=== PATIENT | male | born 1995 | race Hispanic/Latino ===

== ENCOUNTER 2020-12-17 22:13 | Inpatient (IN) | payer SELFPAY ==
[2020-12-17 22:37] LABS: Absolute Lymphocytes (CBC) 1.7 K/uL (0.7-4.9); Basophils % 0.3 % (0-1.3); Hematocrit 44.9 % (39.6-49.0); Lymphocytes % 8.8 % (15.3-44.8); MPV 8.3 fL (7.6-11.3); RBC Red Blood Cell Count 5.06 M/uL (4.33-5.43)
[2020-12-17 22:50] LABS: Albumin 5.5 g/dL (3.4-5.0); Bilirubin Direct 0.2 mg/dL (0-0.2); Bilirubin Total 0.7 mg/dL (0.2-1.0); Magnesium 2.2 mg/dL (1.8-2.4); Potassium 3.6 mmol/L (3.5-5.1); Protein, Total 9.9 g/dL (6.4-8.2)
[2020-12-17] MEDS ORDERED: Ringers Lactate 1,000 ML IV ONE (22:59)
[2020-12-17 23:20] LABS: Blood Morphology Comment NOT SEEN (NOT SEEN); Platelet Estimate ADEQ
--- NOTE | 2020-12-17 23:37 | EDPHYS ---
Physician Documentation [facility] Name: Junior South Gonzales Age: 25 yrs Sex: Male : 1995 Arrival Date: 12/17/2020 Time: 22:14 Bed 7 Private MD: ED Physician El Arevalo HPI: 12/17 23:07 This 25 yrs old Male presents to ER via Stretcher with complaints of Heat Exposure. jr8 23:31 Patient stated that he has been joshua all day. Last urination was this morning. This jr8 evening started to cramp severely . Severity of symptoms: At their worst the symptoms were moderate in the emergency department the symptoms are unchanged. The patient has not experienced similar symptoms in the past. The patient has not recently seen a physician. Historical: - Allergies: 22:26 No Known Allergies; em - PMHx: 22:26 None; em - PSHx: 22:26 left femur; em - Immunization history:: Adult Immunizations up to date. - Social history:: Smoking status: Patient denies any tobacco usage or history of. ROS: 23:31 Eyes: Negative for injury, pain, redness, and discharge, ENT: Negative for injury, jr8 pain, and discharge, Neck: Negative for injury, pain, and swelling, Cardiovascular: Negative for chest pain, palpitations, and edema, Respiratory: Negative for shortness of breath, cough, wheezing, and pleuritic chest pain, Abdomen/GI: Negative for abdominal pain, nausea, vomiting, diarrhea, and constipation, Back: Negative for injury and pain, MS/Extremity: Negative for injury and deformity, Skin: Negative for injury, rash, and discoloration, Neuro: Negative for headache, weakness, numbness, tingling, and seizure. Exam: 23:31 Constitutional: This is a well developed, well nourished patient who is awake, alert, jr8 and in no acute distress. Eyes: Pupils equal round and reactive to light, extra-ocular motions intact. Lids and lashes normal. Conjunctiva and sclera are non-icteric and not injected. Cornea within normal limits. Periorbital areas with no swelling, redness, or edema. ENT: Nares patent. No nasal discharge, no septal abnormalities noted. Tympanic membranes are normal and external auditory canals are clear. Oropharynx with no redness, swelling, or masses, exudates, or evidence of obstruction, uvula midline. Mucous membranes moist. Neck: Trachea midline, no thyromegaly or masses palpated, and no cervical lymphadenopathy. Supple, full range of motion without nuchal rigidity, or vertebral point tenderness. No Meningismus. Cardiovascular: Regular rate and rhythm with a normal S1 and S2. No gallops, murmurs, or rubs. Normal PMI, no JVD. No pulse deficits. Respiratory: Lungs have equal breath sounds bilaterally, clear to auscultation and percussion. No rales, rhonchi or wheezes noted. No increased work of breathing, no retractions or nasal flaring. Abdomen/GI: Soft, non-tender, with normal bowel sounds. No distension or tympany. No guarding or rebound. No evidence of tenderness throughout. Back: No spinal tenderness. No costovertebral tenderness. Full range of motion. Skin: Warm, dry with normal turgor. Normal color with no rashes, no lesions, and no evidence of cellulitis. MS/ Extremity: Pulses equal, no cyanosis. Neurovascular intact. Full, normal range of motion. Neuro: Awake and alert, GCS 15, oriented to person, place, time, and situation. Cranial nerves II-XII grossly intact. Motor strength 5/5 in all extremities. Sensory grossly intact. Vital Signs: 22:22 BP 124 / 76; Pulse 103; Resp 18; Temp 98.6; Pulse Ox 98% on R/A; Weight 68.04 kg; em Height 5 ft. 8 in. (172.72 cm); Pain 0/10; 23:09 BP 111 / 65; Pulse 85; Resp 18; Pulse Ox 98% ; ea 12/18 00:20 BP 125 / 83; Pulse 80; Resp 18; Pulse Ox 99% on R/A; ea 12/17 22:22 Body Mass Index 22.81 (68.04 kg, 172.72 cm) em [facility]: 12/17 22:15 Patient medically screened. [facility] 23:31 Data reviewed: vital signs, nurses notes, lab test result(s), and as a result, I will [facility] admit patient. Data interpreted: Pulse oximetry: on room air is 98 %. Interpretation: normal. Counseling: I had a detailed discussion with the patient and/or guardian regarding: the historical points, exam findings, and any diagnostic results supporting the discharge/admit diagnosis, lab results, the need for further work-up and treatment in the hospital. 12/17 22:15 Order name: CBC with Diff; Complete Time: 23:30 8 12/17 22:15 Order name: Basic Metabolic Panel; Complete Time: 23:12 jr8 12/17 22:15 Order name: LFT's; Complete Time: 23:12 8 12/17 22:15 Order name: CK; Complete Time: 23:12 8 12/17 22:15 Order name: Magnesium; Complete Time: 23:12 jr8 12/17 23:00 Order name: Manual Differential; Complete Time: 23:30 EDMS 12/18 00:28 Order name: Urine Dipstick-Ancillary; Complete Time: 00:29 EDMS 12/18 01:48 Order name: SARS-COV-2 RT PCR; Complete Time: 13:33 EDMS 12/18 03:36 Order name: Lactate; Complete Time: 13:33 EDMS 12/18 03:45 Order name: Protime (+INR); Complete Time: 13:33 EDMS 12/18 03:45 Order name: PTT, Activated Partial Thromb; Complete Time: 13:33 EDMS 12/18 03:53 Order name: CBC with Automated Diff; Complete Time: 13:33 EDMS 12/18 04:30 Order name: Comprehensive Metabolic Panel; Complete Time: 13:33 EDMS 12/17 22:15 Order name: IV; Complete Time: 22:24 jr8 12/17 22:16 Order name: Urine Dipstick-Ancillary (obtain specimen); Complete Time: 00:28 8 12/18 04:30 Order name: Creatine Phosphokinase; Complete Time: 13:33 EDMS 12/18 04:30 Order name: T4 Free; Complete Time: 13:33 EDMS 12/18 04:30 Order name: Thyroid Stimulating Hormone; Complete Time: 13:33 EDMS Administered Medications: 23:00 Drug: Ringers - Lactated Ringers Solution 1000 ml Route: IV; Rate: bolus; Site: right ea antecubital; 23:44 Follow up: IV Status: Completed infusion; IV Intake: 1000ml em 23:26 Drug: NS 0.9% 1000 ml Route: IV; Rate: 1000 ml; Site: right antecubital; ea 07/01 00:28 Follow up: Response: No adverse reaction; IV Status: Completed infusion; IV Intake: ea 1000ml 12/17 23:57 Drug: NS 0.9% 1000 ml Route: IV; Rate: 125 ml/hr; Site: right antecubital; ea 12/18 00:28 Follow up: Response: No adverse reaction; IV Status: Infusion continued upon admission ea Disposition Summary: 12/17/20 23:36 Hospitalization Ordered Hospitalization Status: Inpatient Admission jr8 Provider: Ethan George Condition: Stable jr8 Problem: new jr8 Symptoms: are unchanged jr8 Bed/Room Type: Standard 8 Location: Telemetry/MedSurg (Inpatient)(12/18/20 04:46) tl1 Room Assignment: [facility](12/18/20 04:46) tl1 Diagnosis - Acute kidney failure, unspecified jr8 - Dehydration jr8 - Heat exhaustion, unspecified jr8 Forms: - Medication Reconciliation Form jr8 - SBAR form jr8 Addendum: 12/22/2020 20:39 Co-signature as Attending Physician, El chan a2 Signatures: Dispatcher [employer] Chris Kiran RN RN em Roszak, Josh, PA PA jr8 Iris De Guzman RN RN tl1 Yuni Degroot RN RN ea Alzahri, Mohammad, MD MD ma2 Corrections: (The following items were deleted from the chart) 12/18 00:11 00:02 CORONAVIRUS+MR.LAB.BRZ ordered. [facility] EDID 00:50 12/17 23:36 Telemetry/MedSurg (Inpatient) jr8 em 12/18 00:50 12/17 23:36 jr8 em 12/18 04:46 00:50 [facility] ER HOLD em tl1 04:46 00:50 ERHOLD- em tl1
--- NOTE | 2020-12-17 23:37 | ER ---
Nurse's Notes [facility] Name: Junior South Gonzales Age: 25 yrs Sex: Male : 1995 Arrival Date: 12/17/2020 Time: 22:14 Bed 7 Private MD: Diagnosis: Acute kidney failure, unspecified;Dehydration;Heat exhaustion, unspecified Presentation: 12/17 22:22 Chief complaint: Patient states: was working on a roof all day, reports nausea, em cramping, and possible dehydration, pt unable to sit in wheelchair, stretcher wheeled to the lobby. Coronavirus screen: Client denies travel out of the [place] in the last 14 days. Ebola Screen: Patient negative for fever greater than or equal to 101.5 degrees Fahrenheit, and additional compatible Ebola Virus Disease symptoms Patient denies exposure to infectious person. Patient denies travel to an Ebola-affected area in the 21 days before illness onset. No symptoms or risks identified at this time. Initial Sepsis Screen: Does the patient meet any 2 criteria? HR > 90 bpm. No. Patient's initial sepsis screen is negative. Does the patient have a suspected source of infection? No. Patient's initial sepsis screen is negative. Risk Assessment: Do you want to hurt yourself or someone else? Patient reports no desire to harm self or others. Onset of symptoms was December 17, 2020. 22:22 Method Of Arrival: Stretcher em 22:22 Acuity: TIKI 2 em Historical: - Allergies: 22:26 No Known Allergies; em - PMHx: 22:26 None; em - PSHx: 22:26 left femur; em - Immunization history:: Adult Immunizations up to date. - Social history:: Smoking status: Patient denies any tobacco usage or history of. Screenin:30 Abuse screen: Denies threats or abuse. Nutritional screening: No deficits noted. ea Tuberculosis screening: No symptoms or risk factors identified. Fall Risk IV access (20 points). Assessment: 22:30 General: Appears uncomfortable, Behavior is appropriate for age. Pain: Denies pain. ea Neuro: Level of Consciousness is awake, alert, obeys commands, Oriented to person, place, time. Cardiovascular: Patient's skin is warm and dry. Respiratory: Airway is patent Respiratory effort is even, unlabored, Respiratory pattern is regular, symmetrical. Derm: Skin is pink, warm \T\ dry. 12/18 00:28 Reassessment: Patient and/or family updated on plan of care and expected duration. Pain ea level reassessed. Patient is alert, oriented x 3, equal unlabored respirations, skin warm/dry/pink. Pt admitted to ER hold. Vital Signs: 12/17 22:22 BP 124 / 76; Pulse 103; Resp 18; Temp 98.6; Pulse Ox 98% on R/A; Weight 68.04 kg; em Height 5 ft. 8 in. (172.72 cm); Pain 0/10; 23:09 BP 111 / 65; Pulse 85; Resp 18; Pulse Ox 98% ; ea 12/18 00:20 BP 125 / 83; Pulse 80; Resp 18; Pulse Ox 99% on R/A; ea 12/17 22:22 Body Mass Index 22.81 (68.04 kg, 172.72 cm) em ED Course: 12/17 22:14 Patient arrived in ED. mw2 22:15 Cody Villavicencio PA is PHCP. jr8 22:15 El Arevalo MD is Attending Physician. jr8 22:24 Yuni Degroot, CATHY is Primary Nurse. ea 22:24 Inserted saline lock: 20 gauge in right antecubital area, using aseptic technique. ea Blood collected. 22:26 Triage completed. em 22:30 Patient has correct armband on for positive identification. Bed in low position. Call ea light in reach. Side rails up X2. 22:31 Arm band placed on. em 23:35 Ethan George is Hospitalizing Provider. jr8 12/18 00:19 No provider procedures requiring assistance completed. Patient admitted, IV remains in ea place. Administered Medications: 12/17 23:00 Drug: Ringers - Lactated Ringers Solution 1000 ml Route: IV; Rate: bolus; Site: right ea antecubital; 23:44 Follow up: IV Status: Completed infusion; IV Intake: 1000ml em 23:26 Drug: NS 0.9% 1000 ml Route: IV; Rate: 1000 ml; Site: right antecubital; ea 12/18 00:28 Follow up: Response: No adverse reaction; IV Status: Completed infusion; IV Intake: ea 1000ml 12/17 23:57 Drug: NS 0.9% 1000 ml Route: IV; Rate: 125 ml/hr; Site: right antecubital; ea 12/18 00:28 Follow up: Response: No adverse reaction; IV Status: Infusion continued upon admission ea Intake: 12/17 23:44 IV: 1000ml; Total: 1000ml. em 12/18 00:28 IV: 1000ml; Total: 2000ml. ea Outcome: 12/17 23:36 Decision to Hospitalize by Provider. jrShalini 12/18 00:19 Admitted to ER Hold. Please see [facility] for further documentation. ea Condition: stable Instructed on the need for admit, Demonstrated understanding of instructions. 06:07 Patient left the ED. jb4 Signatures: Chris Garcia RN RN Cody Khanna PA PA jr8 René Merino RN RN jb4 Yuni Degroot RN Penelope Jiménez ea mw2
[2020-12-17] MEDS ORDERED: NA CHLORIDE 0.9% 2,000 ML ONE (23:39)
[2020-12-18 00:29] LABS: Urine Blood 1+ (Negative); Urine Glucose Negative (Negative); Urine Protein Negative (Negative); Urine Specific Gravity <=1.005 (1.005-1.030); Urine pH 5.5 (5.0-7.0)
[2020-12-18] MEDS ORDERED: ACETAMINOPHEN 500 MG TAB PO PRN (01:29)
[2020-12-18] MEDS: NA CHLORIDE 0.9% 1,000 ML IV SCH ×3 (01:29→16:57)
[2020-12-18] MEDS ORDERED: ONDANSETRON 4 MG/2 ML VIAL IV PRN (01:29)
--- NOTE | 2020-12-18 01:57 | P.HP ---
Certification for Inpatient Patient admitted to: Inpatient With expected LOS: <2 Midnights <HubertZach Adam - Last Filed: 12/18/20 01:50> Patient History Date of Service: 12/18/20 Reason for admission: dehydration, VELMA History of Present Illness: Mr. South Gonzales is a 25 yo M who presents with severe muscle cramps after working at his [employer] job all day. Symptoms improved after receiving fluids in the ED. Denies headache, N/V, dizziness. WBC 19.5. Na 132, Cl 95. BUN 31, Cr 3.47, GFR 22. Glu 171. CK 551. - Past Medical/Surgical History Has patient received pneumonia vaccine in the past: No Diabetic: No Past Medical History: Patient denies medical history -: left femur - Family History Family History: Reviewed- Non-Contributory - Social History Smoking Status: Never smoker Alcohol use: Yes CD- Drugs: No Caffeine use: Yes Place of Residence: Home <Zach Gaspar - Last Filed: 12/18/20 01:50> Date of Service: 12/18/20 <El Quiñones - Last Filed: 12/22/20 04:40> Allergies No Known Allergies Allergy (Unverified 12/18/20 01:29) Review of Systems 10-point ROS is otherwise unremarkable Musculoskeletal: As per HPI (muscle cramps) <HubertZach - Last Filed: 12/18/20 01:50> Physical Examination - Physical Exam General: Alert, In no apparent distress HEENT: Atraumatic, PERRLA, Mucous membr. moist/pink, EOMI, Sclerae nonicteric Neck: Supple, 2+ carotid pulse no bruit, No LAD, Without JVD or thyroid abnormality Respiratory: Clear to auscultation bilaterally, Normal air movement Cardiovascular: Regular rate/rhythm, Normal S1 S2 Gastrointestinal: Normal bowel sounds, No tenderness Musculoskeletal: No tenderness Integumentary: No rashes Neurological: Normal gait, Normal speech, Normal strength at 5/5 x4 extr, Normal tone, Normal affect Lymphatics: No axilla or inguinal lymphadenopathy - Studies Laboratory Data (last 24 hrs) 12/17/20 22:19: Sodium 132 L, Potassium 3.6, BUN 31 H, Creatinine 3.47 H, Glucose 171 H, Magnesium 2.2, Total Bilirubin 0.7, AST 22, ALT 31, Alkaline Phosphatase 99 12/17/20 22:19: WBC 19.50 H, Hgb 15.1, Hct 44.9, Plt Count 294 <Zach Gaspar - Last Filed: 12/18/20 01:50> Assessment and Plan - Problems (Diagnosis) (1) Dehydration Status: Acute (2) VELMA (acute kidney injury) Status: Acute (3) Heat cramp Status: Acute Qualifiers: Encounter type: initial encounter Qualified Code(s): T67.2XXA - Heat cramp, initial encounter - Plan continue aggressive fluid hydration - oral and IVF will repeat BMP in the AM for improvement of VELMA if no improvement, will consult nephrology DVT ppx Discharge Plan: Home Plan to discharge in: 24 Hours - Advance Directives Does patient have a Living Will: No Does patient have a Durable POA for Healthcare: No - Code Status/Comfort Care Code Status Assessed: Yes (full code ) Critical Care: No Time Spent Managing Pts Care (In Minutes): 70 <Zach Gaspar - Last Filed: 12/18/20 01:50> Date of Service: 12/18/20 Subjective: Agree with plan of care as mentioned above Physical Examination: Vitals: Afebrile vital signs are stable Physical exam: Cardiovascular: Within normal limits. Lungs: Within normal limits Abdomen: Within normal limits Neuro: Awake, alert, oriented to person place and time Assessment: 1. Acute kidney injury Plan: 1. Continue with current plan of care including aggressive IV hydration. 2. Monitor renal function closely <El Quiñones - Last Filed: 12/22/20 04:40>
[2020-12-18 03:42] LABS: Basophils % 0.5 % (0-1.3); Hematocrit 38.9 % (39.6-49.0); MPV 8.3 fL (7.6-11.3); RBC Red Blood Cell Count 4.36 M/uL (4.33-5.43)
[2020-12-18 03:44] VITALS: BMI 22.8
[2020-12-18 03:44] LABS: Protime INR 1.14
[2020-12-18 03:45] LABS: Bilirubin Total 0.5 mg/dL (0.2-1.0); Potassium 3.9 mmol/L (3.5-5.1); Protein, Total 7.4 g/dL (6.4-8.2); Thyroid Stimulating Hormone 0.575 uIU/mL (0.360-3.740)
[2020-12-18] MEDS: ENOXAPARIN 40 MG/0.4 ML SQ SCH (07:46)
[2020-12-18] MEDS ORDERED: POTASSIUM CL SA 10 MEQ TAB PO ONE (09:00)
[2020-12-19 04:23] LABS: Absolute Lymphocytes (CBC) 2.6 K/uL (0.7-4.9); Basophils % 0.6 % (0-1.3); Hematocrit 38.3 % (39.6-49.0); MPV 8.2 fL (7.6-11.3); RBC Red Blood Cell Count 4.21 M/uL (4.33-5.43)
[2020-12-19 04:34] LABS: ALT/SGPT 24 U/L (12-78); AST/SGOT 20 U/L (15-37); Albumin 3.5 g/dL (3.4-5.0); Alkaline Phosphatase 83 U/L (45-117); BUN Blood Urea Nitrogen 14 mg/dL (7-18); Bicarbonate 27 mmol/L (21-32); Bilirubin Total 0.5 mg/dL (0.2-1.0); Glucose Level 104 mg/dL (74-106); Phosphorus 3.4 mg/dL (2.5-4.9); Potassium 4.8 mmol/L (3.5-5.1); Protein, Total 6.6 g/dL (6.4-8.2); Sodium Level 141 mmol/L (136-145)
--- NOTE | 2020-12-19 06:22 | EKG ---
Test Date: 2020-12-17 Test Time: 22:21:18 Table Assembler: SUDHA MEASUREMENT RESULTS: Intervals: Rate: 103 KS: 128 QRSD: 72 QT: 340 QTc: 445 [place]: P: 74 KS: 128 QRS: 87 T: 68 INTERPRETIVE STATEMENTS: Sinus tachycardia Right atrial enlargement Borderline ECG No previous ECG available for comparison Electronically Signed On 12-19-20 06:18:06 CDT by Nick Garcia
[2020-12-19 08:50] VITALS: BP 123/72; TEMP 97.5
[2020-12-19] MEDS: ENOXAPARIN 40 MG/0.4 ML SQ SCH (09:00)
[2020-12-19 10:07] VITALS: O2SAT 99
--- NOTE | 2020-12-22 04:43 | P.DS ---
Discharge Date: 12/19/20 Disposition: ROUTINE DISCHARGE Discharge Condition: GOOD Reason for Admission: dehydration, VELMA Brief History of Present Illness: Patient is a 25-year-old gentleman who came to the hospital with acute renal insufficiency. Patient was severely dehydrated. Patient was given aggressive IV hydration. Hospital Course: Patient renal function has improved significantly. Patient's creatinine is much better. At this time, patient is stable for discharge home. Vital Signs/Physical Exam: Temp Pulse Resp BP Pulse Ox 97.5 F 69 16 123/72 99 12/19/20 08:00 12/19/20 08:00 12/19/20 08:00 12/19/20 08:00 12/19/20 08:00 General: Alert, In no apparent distress, Oriented x3 Laboratory Data at Discharge: WBC 7.50 K/uL (4.3-10.9) D 12/19/20 03:53 Hgb 12.6 g/dL (13.6-17.9) L 12/19/20 03:53 Hct 38.3 % (39.6-49.0) L 12/19/20 03:53 Plt Count 205 K/uL (152-406) 12/19/20 03:53 PT 13.1 SECONDS (9.5-12.5) H 12/18/20 03:00 INR 1.14 12/18/20 03:00 APTT 28.0 SECONDS (24.3-36.9) 12/18/20 03:00 Sodium 141 mmol/L (136-145) 12/19/20 03:53 Potassium 4.8 mmol/L (3.5-5.1) 12/19/20 03:53 BUN 14 mg/dL (7-18) 12/19/20 03:53 Creatinine 0.82 mg/dL (0.55-1.3) 12/19/20 03:53 Glucose 104 mg/dL (74-106) 12/19/20 03:53 Phosphorus 3.4 mg/dL (2.5-4.9) 12/19/20 03:53 Magnesium 2.0 mg/dL (1.8-2.4) 12/19/20 03:53 Total Bilirubin 0.5 mg/dL (0.2-1.0) 12/19/20 03:53 AST 20 U/L (15-37) 12/19/20 03:53 ALT 24 U/L (12-78) 12/19/20 03:53 Alkaline Phosphatase 83 U/L (45-117) 12/19/20 03:53 Home Medications: NK [No Home Meds] 12/18/20 Physician Discharge Instructions: PROBLEM: Dehydration, Acute kidney injury GOAL: Clear understanding of disease process INSTRUCTIONS: Diet: Regular Activity: Fall precautions If your symptoms worsen call 911 or go to the ED. If you have any questions regarding your stay call [phone] OK TO DC IV AND DC HOME FOLLOW-UP WITH PCP IN 1-2 WEEKS RETURN TO THE ER IF SYMPTOMS WORSENS STAY HYDRATED WITH 2-3L OF FLUIDS FOR THE NEXT WEEK Diet: Regular Activity: Fall precautions Followup: NONE,NONE [Primary Care Provider] - Time spent managing pt's care (in minutes): 35
== END 2020-12-19 11:15 | disposition home or self-care (01) | DRG 684 ==
LOC: ER 22:13 → ERHOLD 12-18 00:37 → 2ND 12-18 05:56 → OBSVTOIN 12-18 07:53
PROVIDERS: ADMIT Hospitalist; ATTEND Hospitalist
DX: N17.9 Acute kidney failure, unspecified (principal); E86.0 Dehydration; T67.2XXA Heat cramp, initial encounter; X30.XXXA Exposure to excessive natural heat, initial encounter; Y92.89 Other specified places as the place of occurrence of the external cause; Z20.822 Contact with and (suspected) exposure to COVID-19
CPT/HCPCS: 36415; 80048; 80053; 80076; 81003; 82550; 83605; 83735; 84100; 84439; 84443; 85025; 85610; 85730; 93005; 94760; 96361; 96365; 99285; G0378; J1650; J7030; J7120; U0003